=== PATIENT | male | born 1955 | race Caucasian/White ===

== ENCOUNTER → 2022-05-15 | Day surgery (SDC) | payer MEDICARE, OTHER ==
[~2022-05-15] MED LIST: ALLOPURINOL300 MG PO; ATORVASTATIN CA20 MG PO; CARAFATE1 GM PO; DEXAMETHASONE SOD PHOS 10 MG/1 ML VIAL ONE; LANSOPRAZOLE15 MG; LIDOCAINE HCL 2% LOCAL INJ 5 ML SDV VIAL INJ ONE; METOPROLOL SUCC25 MG PO; NEURONTIN300 MG PO; OFLOXACIN 0.3% (OTIC SOL) 5 ML BTL ONE; ONDANSETRON HCL INJ 2MG/ML 2ML 2 MG/ML VIAL ONE; POVIDONE IODINE 0.05% 0.05 % ML PO ONE; PROPOFOL IV EMULSION 10 MG/ML 20 ML VIAL ONE; SEVOFLURANE INHAL SOLN 250 ML PEN BTL ONE; TOPIRAMATE25 MG PO; VITAMIN B12 PO; XARELTO10 MG PO
[2022-05-15 10:27] VITALS: BP 126/74
== END | disposition home or self-care (01) ==
LOC: OR 06:03
PROVIDERS: ATTEND Otolaryngology Otolaryngology/Facial Plastic Surgery
DX: H65.91 Unspecified nonsuppurative otitis media, right ear (principal); H90.3 Sensorineural hearing loss, bilateral; H93.13 Tinnitus, bilateral; J32.9 Chronic sinusitis, unspecified; H70.93 Unspecified mastoiditis, bilateral; G47.33 Obstructive sleep apnea (adult) (pediatric); I10 Essential (primary) hypertension; I48.91 Unspecified atrial fibrillation; E66.01 Morbid (severe) obesity due to excess calories; N20.0 Calculus of kidney; Z79.899 Other long term (current) drug therapy; Z86.711 Personal history of pulmonary embolism
CPT/HCPCS: 69436; 71046; 93005; J1100; J2001; J2405; J2704